=== PATIENT | female | born 1940 | race Two or more races ===

== ENCOUNTER 2020-03-29 12:16 | Emergency (ER) | payer MEDICARE, OTHER ==
[~2020-03-29] VITALS: Ht 157.5 cm; Wt 63.5 kg
[2020-03-29 12:26] VITALS: BP 112/35
[2020-03-29] MEDS ORDERED: FAMOTIDINE20 MG ORAL (12:30)
[2020-03-29] MEDS ORDERED: ACETAMINOPHEN325 M1 ORAL (12:30)
[2020-03-29] MEDS ORDERED: LEVSIN-SL0.125 MG SL (12:30)
[2020-03-29] MEDS ORDERED: MORPHINE S10 MG/5 ML ORAL (12:30)
[2020-03-29] MEDS ORDERED: ZOFRAN4 M1 ORAL (12:30)
[2020-03-29] MEDS ORDERED: BISACODYL10 M1 RC (12:30)
--- NOTE | 2020-03-29 12:30 | NUR ---
SPOKE to patients hakan walter who was instructed to send the patient back due to no iv,labs or x-rays. so i called [facility] . spoke to juventino mosqueda and given report that patient is returning back per her consevator geovany
--- NOTE | 2020-03-29 12:35 | Emergency Room Report ---
History of Present Illness General Chief Complaint: Dyspnea/Respdistress Source: EMS Present Illness HPI Disclaimer: Please note that this report is being documented using DRAGON technology. This can lead to erroneous entry secondary to incorrect interpretation by the dictating instrument. HPI: 79-year-old female [facility] from jail facility for evaluation of dyspnea. Patient tested positive for COVID-19 9 days ago. She required oxygen last night is now nonrebreather saturating between 95 and 98%. Patient is nonverbal as a history of dementia. On arrival her her POLST was evaluated showing that she was not to be sent to the hospital, she is DNR/DNI, no chest x- rays, no labs and no hospitalizations. I discussed with the patient's healthcare proxy, her niece Claudette, who stated she was told the patient required oxygen last night and again reiterate that her aunt is comfort measures only. She was frustrated that she was sent to the emergency department and said she does not want any medical work-up I would like her sent back to her facility if stable for transfer. She has been in hospice for the past 4 years but transferred to the jail facility once she tested positive for COVID- 19. 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 EOMI. CV: Regular rate and rhythm Resp: On nonrebreather, saturating 98%, no respiratory distress MSK: Normal tone and bulk. Moving all extremities. No obvious deformity. Neuro: Awake, nonverbal, no eye contact, does not appear to understand verbal communication. Medical Decision Making Diagnostic Impression: Primary Impression: COVID-19 Additional Impression: Dyspnea ER Course Is an 79-year-old female with a history of dementia, anemia, diabetes, G-tube dependent feeding presenting from nursing facility for evaluation of dyspnea. Patient's POLST and healthcare proxy both state that she is not to be sent to the hospital, no labs, no chest x-rays. Patient is saturating 100% now on nonrebreather and is in no respiratory distress. According to her advanced directives, which were repeated by her healthcare proxy, the patient will not have any medical intervention or work-up in the emergency department today. Family is requesting she return to her jail facility and made comfortable. Will arrange transport. Last Vital Signs Date Time Temp Pulse Resp B/P (MAP) Pulse Ox O2 Delivery O2 Flow Rate FiO2 03/29/20 12:07 62 16 111/72 (85) 95 Non-Rebreather Disposition: SNF Condition: Stable Additional Instructions: Return as needed only in accordance with the patient's wishes according to her POLST form Kyler Cortez MD Mar 29, 2020 12:35
--- NOTE | 2020-03-29 12:35 | NUR ---
ED Nurse Note: Dr. Lopez spoke with family members, they got so upset about this situation, because pt is DNR, DNI, no chest Xray, no labs, no hospitalisations. Will wait for further orders.
--- NOTE | 2020-03-29 12:39 | NUR ---
[facility] called for transport eta 1 hour
--- NOTE | 2020-03-29 12:45 | NUR ---
ED Nurse Note: Patient was brought by [facility] # [id number] from [facility] due to SOB, resp desstress. Patient on NR 15L and maintained 98% of pulse oximetry. Patient was tested +COVID. Patient presented with labored breathing,using accessory muscles, tachypnic RR 50, patient AAO x0, skin is warm to touch.
--- NOTE | 2020-03-29 13:36 | NUR ---
ED Nurse Note: Patient was transfered back to the [facility], via private [facility] ambulance # [id number], with all belongings. Patient still AAO x0, BP 89/32, RR47, patient has flat affect. Patient has labored breathing, using her accessory muscles to breath. Patient was sent back with NR on 15L.
[2020-03-29 13:39] VITALS: BP 89/32
[2020-03-29 13:40] VITALS: BP 89/32
== END 2020-03-29 13:42 ==
LOC: EDBD 12:16 → EMR 13:19
DX: U07.1 COVID-19 (principal); R06.00 Dyspnea, unspecified; F03.90 Unspecified dementia, unspecified severity, without behavioral disturbance, psychotic disturbance, mood disturbance, and anxiety; E11.9 Type 2 diabetes mellitus without complications; I10 Essential (primary) hypertension; K21.9 Gastro-esophageal reflux disease without esophagitis; Z93.1 Gastrostomy status
CPT/HCPCS: 99283